=== PATIENT | female | born 1970 | race Caucasian/White ===

== ENCOUNTER 2019-03-17 16:25 | Emergency (ER) | payer OTHER ==
--- NOTE | 2019-03-17 17:08 | ED ---
HPI Febrile Illness - HPI Summary HPI Summary: The patient is a 49 y/o female presenting to [facility] with a chief complaint of persistent fever since 03/15/2019. She reports that she was diagnosed with the flu on 02/24 with negative CXR. Two days ago, she developed a cough and then she developed a fever yesterday that has been constant since onset. Today, she went to urgent care and had a negative flu test. She states she is having shortness of breath with the cough. Her symptoms are currently rated 5/10 in severity. She notes that she had an elevated blood pressure while at urgent care today. No known PMHx. FHx: cardiac history. Former smoker, no EtOH, no substance use. Medications reviewed. Allergies noted. - History of Current Complaint Chief Complaint: EDFever Time Seen by Provider: 03/17/19 16:38 Hx Obtained From: Patient Onset/Duration: Started Days Ago, Still Present Initial Severity: Moderate Current Severity: Moderate Pain Intensity: 5 Pain Scale Used: 0-10 Numeric Aggravating Factors: Nothing Alleviating Factors: Nothing Associated Signs and Symptoms: Cough, SOB - Allergy/Home Medications Allergies/Adverse Reactions: Allergies Allergy/AdvReac Type Severity Reaction Status Date / Time No Known Allergies Allergy Verified 03/17/19 16:29 PMH/Surg Hx/FS Hx/Imm Hx Endocrine/Hematology History: Denies: Hx Diabetes Cardiovascular History: Denies: Hx Hypertension Sensory History: Reports: Hx Contacts or Glasses Opthamlomology History: Reports: Hx Contacts or Glasses - Surgical History Surgical History: None Surgery Procedure, Year, and Place: none - Immunization History Immunizations Up to Date: Yes Infectious Disease History: No Infectious Disease History: Denies: Traveled Outside the [place] in Last 30 Days - Family History Known Family History: Positive: Cardiac Disease, Hypertension - Social History Alcohol Use: None Hx Substance Use: No Substance Use Type: Reports: None Hx Tobacco Use: Yes Smoking Status (MU): Former Smoker Review of Systems Positive: Fever Positive: Shortness Of Breath, Cough All Other Systems Reviewed And Are Negative: Yes Physical Exam - Summary Physical Exam Summary: Appearance: The patient is well-nourished in no acute distress and in no acute pain. Skin: The skin is warm and dry, and skin color reflects adequate perfusion. HEENT: The head is normocephalic and atraumatic. The pupils are equal and reactive. The conjunctivae are clear and without drainage. Nares are patent and without drainage. Mouth reveals moist mucous membranes, and the throat is without erythema and exudate. The external ears are intact. The ear canals are patent and without drainage. The tympanic membranes are intact. Neck: The neck is supple with full range of motion and non-tender. There are no carotid bruits. There is no neck vein distension. Respiratory: Chest is non-tender. Lungs are clear to auscultation and breath sounds are symmetrical and equal. Cardiovascular: Heart is regular rate and rhythm. There is no murmur or rub auscultated. There is no peripheral edema and pulses are symmetrical and equal. Abdomen: The abdomen is soft and non-tender. There are normal bowel sounds heard in all four quadrants and there is no organomegaly palpated. Musculoskeletal: There is no back tenderness noted. Extremities are non-tender with full range of motion. There is good capillary refill. There is no peripheral edema or calf tenderness elicited. Neurological: Patient is alert and oriented to person, place and time. The patient has symmetrical motor strength in all four extremities. Cranial nerves are grossly intact. Deep tendon reflexes are symmetrical and equal in all four extremities. Psychiatric: The patient has an appropriate affect and does not exhibit any anxiety or depression. Triage Information Reviewed: Yes Vital Signs On Initial Exam: Initial Vitals Temp Pulse Resp BP Pulse Ox 100.7 F 97 18 161/105 99 03/17/19 16:27 03/17/19 16:27 03/17/19 16:27 03/17/19 16:27 03/17/19 16:27 Vital Signs Reviewed: Yes Procedures - Sedation Patient Received Moderate/Deep Sedation with Procedure: No Diagnostics - Vital Signs Vital Signs Temp Pulse Resp BP Pulse Ox 03/17/19 16:45 108 129/78 97 03/17/19 16:27 100.7 F 97 18 161/105 99 - Laboratory Result Diagrams: 03/17/19 17:18 03/17/19 17:18 Lab Statement: Any lab studies that have been ordered have been reviewed, and results considered in the medical decision making process. - Radiology CXR Radiology Interpretation Completed By: ED Physician Summary of Radiographic Findings: No acute process. ED physician has reviewed and interpreted this report. Pending official read. Re-Evaluation - Re-Evaluation First Eval Re-Evaluation Time: 19:45 Comment: We discussed results and plan for discharge. Course/Dx - Course Course Of Treatment: Chest x-ray and labs were unremarkable here. She improved significantly with guaifenesin and codeine. I think this is likely a viral process and symptomatic treatment is in order. - Diagnoses Provider Diagnoses: Bronchitis Discharge ED - Sign-Out/Discharge Documenting (check all that apply): Patient Departure - Patient will be discharged home. - Discharge Plan Condition: Stable Disposition: HOME Prescriptions: Codeine Phosphate/Guaifenesin [Guaiatussin AC Liquid] 5 ml PO Q4HR #120 ml MDD 30 cc Patient Education Materials: Acute Bronchitis (ED) Referrals: Gary Salcedo MD [Medical Doctor] - 3 Days Additional Instructions: Please take medications as prescribed. Follow up with your primary care provider in 2-3 days. Return to the emergency department for any new or worsening symptoms. - Billing Disposition and Condition Condition: STABLE Disposition: Home - Attestation Statements Document Initiated by Scribe: Yes Documenting Scribe: Jessy Caicedo Provider For Whom Yolanda is Documenting (Include Credential): Dr. Jake Hull MD Scribe Attestation: I, Jessy Caicedo, scribed for Dr. Jake Hull MD on 03/17/19 at 2046. Scribe Documentation Reviewed: Yes Provider Attestation: The documentation as recorded by the Jessy rojas accurately reflects the service I personally performed and the decisions made by me, Dr. Jake Hull MD Status of Scribe Document: Viewed
[2019-03-17] MEDS ORDERED: guaiFENesin/CODIENE 100mg/10mg 5 ML UDC PO ONE (17:12)
[2019-03-17 17:27] LABS: ABS Eosinophils 0.1 10^3/ul (0-0.6); ABS Lymphocytes 0.7 10^3/ul (1.0-4.8); ABS Monocytes 0.7 10^3/ul (0-0.8); ABS Neutrophils 4.8 10^3/ul (1.5-7.7); Eosinophil % 2.1 %; Hematocrit 38 % (35-47); Hemoglobin 12.8 g/dL (12.0-16.0); Lymphocyte % 11.1 %; Mean Corpuscular HGB Conc 34 g/dL (31-36); Mean Corpuscular Hemoglobin 28 pg (27-31); Mean Corpuscular Volume 83 fL (80-97); Mean Platelet Volume 6.6 fL (7.4-10.4); Platelet Count 302 10^3/uL (150-450); Red Blood Count 4.57 10^6 /uL (3.70-4.87); Red Cell Distribution Width 14 % (10-15); White Blood Count 6.3 10^3/uL (3.5-10.8)
[2019-03-17 17:44] LABS: Albumin 3.7 g/dL (3.2-5.2); Albumin/Globulin Ratio 1.2 (1-3); BUN/Creatinine Ratio 12.5 (8-20); C Reactive Protein 35.26 mg/L (<8.01); Calcium 8.4 mg/dL (8.6-10.3); EGFR African American 75.1 (>60); Globulin 3.1 g/dL (2-4); Potassium 4.2 mmol/L (3.5-5.0); Total Bilirubin 0.4 mg/dL (0.2-1.0); Total Protein 6.8 g/dL (6.4-8.9)
[2019-03-17 20:11] VITALS: BP 112/68
== END 2019-03-17 20:05 | disposition home or self-care (01) ==
LOC: ED 16:25
DX: J40 Bronchitis, not specified as acute or chronic (principal); Z87.891 Personal history of nicotine dependence
CPT/HCPCS: 36415; 71046; 80053; 85025; 86140; 99283; A9270-GY

== ENCOUNTER 2019-12-13 08:03 | Inpatient (IN) ==
[~2019-12-13 08:03] MED LIST: Buffered Lidocaine 1% SYRIN 1 ml INTRADERM ONE; Lactated Ringers 1000 ml BAG 1,000 ML IV SCH
[2019-12-13] MEDS ORDERED: Heparin 5000 UNITS/ML 1 mL VIAL ONE (08:16)
[2019-12-13] MEDS ORDERED: Bupivacaine 0.25% SDV 30 ML ONE (08:17)
[2019-12-13] MEDS ORDERED: ceFAZolin 2 GM in NS PREMIX 2 GM/100 ML BAG IVPB ONE (08:17)
[2019-12-13] MEDS ORDERED: ceFAZolin 1 GM ADVAN 1 GM ADDV.VIAL IVPB ONE (08:17)
[2019-12-13] MEDS ORDERED: Methylene Blue 0.5 % 50 MG/10 ML AMP IV ONE (08:17)
[2019-12-13] MEDS ORDERED: Propofol 10 MG/ML 20 ML BTL ONE (09:54)
[2019-12-13] MEDS ORDERED: Rocuronium 50 mg VIAL 10 mg/ml 5 ml VIAL (50 mg) ONE ×3 (09:57→13:18)
[2019-12-13] MEDS ORDERED: fentaNYL 250 mcg/5 ml 50 MCG/ML 5 ml VIAL (250 MCG) ONE ×2 (10:03→12:32)
[2019-12-13] MEDS ORDERED: Midazolam 2 mg/2 ml VIAL 1 mg/ml 2 ml VIAL (2 mg) ONE (10:05)
[2019-12-13] MEDS ORDERED: HYDROcodone/ACET. 7.5/325 LIQ 15 ML UDC PO PRN (13:51)
[2019-12-13] MEDS ORDERED: diPHENhydraMINE IV 50 MG/ML 1 ml VIAL (BENADRYL) SLOW PUSH PRN (13:51)
[2019-12-13] MEDS ORDERED: HYDROmorphone 1 MG/1 ML SYRINGE IV SLOW PU PRN (13:51)
[2019-12-13] MEDS ORDERED: HYDROmorphone 0.5 MG/0.5 ML SYRINGE IV SLOW PU PRN (13:51)
[2019-12-13] MEDS ORDERED: Metoclopramide 5 MG/ML VIAL (10 mg) IV PRN (13:56)
[2019-12-13] MEDS ORDERED: Naloxone 0.4 mg VIAL 0.4 mg/ml 1 ml VIAL IV PRN (13:56)
[2019-12-13] MEDS ORDERED: Acetaminophen IV 1 GM/100ML 1,000 MG/100 ML VIAL IVPB ONE (13:56)
[2019-12-13] MEDS ORDERED: Metoclopramide 5 MG/ML VIAL (10 mg) ONE (14:08)
[2019-12-13] MEDS ORDERED: HYDROmorphone 1 MG/1 ML SYRINGE ONE (14:09)
[2019-12-13] MEDS: HYDROmorphone 1 MG/1 ML SYRINGE IV PRN ×3 (14:13→14:31)
[2019-12-13] MEDS: Lactated Ringers 1000 ml BAG 1,000 ML IV SCH ×2 (15:26→23:00)
[2019-12-13] MEDS: Ondansetron 4 mg VIAL 2 MG/ML 2 ml VIAL IV PRN ×2 (16:22→22:35)
[2019-12-13] MEDS: Famotidine IV 10 MG/ML 2 ml VIAL (20 mg) IV SLOW PU SCH (22:35)
[2019-12-13] MEDS: Heparin 5000 UNITS/ML 1 mL VIAL SUBCUT SCH (22:36)
[2019-12-14] MEDS: Heparin 5000 UNITS/ML 1 mL VIAL SUBCUT SCH ×4 (06:16→22:00)
[2019-12-14] MEDS: Lactated Ringers 1000 ml BAG 1,000 ML IV SCH (06:16)
[2019-12-14] MEDS: Famotidine IV 10 MG/ML 2 ml VIAL (20 mg) IV SLOW PU SCH ×2 (08:32→22:00)
[2019-12-14] MEDS: D5W 1/2 NS KCl 20 meq 1000 ml 1,000 ML IV SCH ×2 (13:46→23:27)
[2019-12-15] MEDS: Heparin 5000 UNITS/ML 1 mL VIAL SUBCUT SCH (05:33)
[2019-12-15 07:46] VITALS: BP 112/59
[2019-12-15] MEDS: Famotidine IV 10 MG/ML 2 ml VIAL (20 mg) IV SLOW PU SCH (08:50)
[2019-12-15] MEDS: D5W 1/2 NS KCl 20 meq 1000 ml 1,000 ML IV SCH (09:01)
== END 2019-12-15 11:15 | disposition home or self-care (01) | DRG 621 ==
LOC: AA 08:03 → SSU 13:51
PROVIDERS: ADMIT Surgery; ATTEND Surgery